=== PATIENT | female | born 1990 | race Caucasian/White ===

== ENCOUNTER 2018-04-14 11:44 | Emergency (ER) | payer MEDICAID ==
[~2018-04-14] VITALS: Ht 167.6 cm; Wt 83.9 kg
--- NOTE | 2018-04-14 13:28 | NUR ---
URINE SAMPLE OBTAINED AND SENT.
--- NOTE | 2018-04-14 14:34 | NUR ---
Patient does not wish to proceed with medical care recommended by Dr. KAM CARY. Patient given information related to possible complications, up to and including , which could occur as a result of leaving the hospital at this time. Patient verbalizes understanding of risks involved due to leaving against medical advice. Patient has signed AMA form.
[2018-04-14 14:37] VITALS: BP 141/75
== END 2018-04-14 14:37 | disposition left against medical advice (07) ==
LOC: ER 11:49
DX: S19.80XA Other specified injuries of unspecified part of neck, initial encounter (principal); S09.8XXA Other specified injuries of head, initial encounter; S09.93XA Unspecified injury of face, initial encounter; Z33.1 Pregnant state, incidental; G40.909 Epilepsy, unspecified, not intractable, without status epilepticus; Y08.89XA Assault by other specified means, initial encounter; Y93.89 Activity, other specified; Y92.89 Other specified places as the place of occurrence of the external cause; Y99.8 Other external cause status
CPT/HCPCS: 84703; 99283; A4606; L0172; Z7610